=== PATIENT | male | born 1980 | race African-American/Black ===

== ENCOUNTER 2024-12-20 19:50 | Emergency (ER) | payer SELFPAY ==
[2024-12-20 20:06] VITALS: TEMP 97.8; O2SAT 100
--- NOTE | 2024-12-20 20:34 | ERPHSYRPT ---
- History of Present Illness Time Seen by Provider: 12/20/24 20:19 Source: patient Exam Limitations: no limitations Patient Subjective Stated Complaint: c/o in left big toe Triage Nursing Assessment: patient brought self to ED with with c/o left big toe pain. 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 patient has had gout pain in that toe before. patient is hypertensive, gait steady, skin w/n/d, afebrile, patient doesn't appear to be in any distress at this time. Timing/Duration: today, improved Modifying Factors: Improves With: cold therapy Allergies/Adverse Reactions: No Known Drug Allergies Allergy (Verified 12/20/24 20:06) Home Medications: No Reportable Medications [No Reported Medications] 12/20/24 [History] Hx Tetanus, Diphtheria Vaccination/Date Given: No (unknown) Hx Influenza Vaccination/Date Given: No Hx Pneumococcal Vaccination/Date Given: No Travel Risk - International Travel Have you traveled outside of the country in past 3 weeks: No - Emerging Infectious Disease Are you exhibiting symptoms associated with any current EIDs: No - Review of Systems Constitutional: No Symptoms Eyes: No Symptoms Ears, Nose, & Throat: No Symptoms Respiratory: No Symptoms Cardiac: No Symptoms Abdominal/Gastrointestinal: No Symptoms Genitourinary Symptoms: No Symptoms Musculoskeletal: Other (toe pain ) Skin: No Symptoms Neurological: No Symptoms Psychological: No Symptoms - Past Medical History Pertinent Past Medical History: Yes Neurological History: No Pertinent History ENT History: No Pertinent History Cardiac History: High Cholesterol Respiratory History: No Pertinent History Endocrine Medical History: No Pertinent History Musculoskeletal History: No Pertinent History GI Medical History: No Pertinent History History: No Pertinent History Psycho-Social History: No Pertinent History 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 Disorders: Penile Cancer - Past Surgical History Past Surgical History: Yes Other Surgical History: surgery from [facility] around 38 years ago - Social History Smoking Status: Never smoker Exposure to second hand smoke: No Drug Use: none - Social Determinants of Health Will the patient participate in the screening: Yes Do you worry about a steady place to live?: No Do you have any problems with any of the following?: No known problems In the past 12 months,have you had to go without utilities?: No Transportation Issues: No Has anyone in your support network made you feel unsafe?: No Have you or anyone in your house had to go w/o enough food: No - Nursing Vital Signs Nursing Vital Signs: Initial Vital Signs Temperature 97.8 F 12/20/24 19:57 Pulse Rate 71 12/20/24 19:57 Respiratory Rate 19 12/20/24 19:57 Blood Pressure 176/116 12/20/24 19:57 O2 Sat by Pulse Oximetry 100 12/20/24 19:57 Pain Scale Pain Intensity 6 - Physical Exam General Appearance: no apparent distress Eye Exam: PERRL/EOMI Respiratory Exam: normal breath sounds Cardiovascular Exam: regular rate/rhythm SpO2: 100 - Progress Progress Note: .Patient was seen and evaluated for left great toe pain the base of the left great toe is slightly warm when compared to the right this is suggestive of gout he has been treated for a flareup in the past. I contacted the [facility] and [facility] and they inform me that the patient was given colchicine 0.6 mg 2 tabs initially and then 1 tab to be repeated in 1 hour and then twice daily for a few days. The patient will be placed on colchicine with similar instructions and informed of the need to avoid drinking any alcohol or red meat or any other offending agents that would trigger his gout. He was encouraged on the need to follow-up with his primary care provider to start a maintenance regimen location for his gout to prevent further flareups As the patient is traveling to an unknown destination a handwritten prescription for colchicine will be provided he will be given 1 dose here in the department . 12/20/24 20:32 12/20/24 20:43 Medical Desision Making - Discussion of managment Agreed on:: need for follow-up - Departure Departure Disposition: Home Clinical Impression: Gout attack Condition: Stable Critical Care Time: No
[2024-12-20] MEDS ORDERED: Indocin 25 MG ONE (20:48)
[2024-12-20] MEDS: Indocin 25 MG PO ONE (20:50)
[2024-12-20 20:56] VITALS: BP 168/97; PULSE 70; RESP 18
== END 2024-12-20 21:02 | disposition home or self-care (01) ==
LOC: ED 19:50
DX: M10.9 Gout, unspecified (principal); M79.675 Pain in left toe(s); Z79.899 Other long term (current) drug therapy
CPT/HCPCS: 99281; 99283; A9270-GY